=== PATIENT | female | born 1935 | race Caucasian/White ===

== ENCOUNTER 2020-07-14 12:12 | Outpatient (CLI) | payer MEDICARE | END 2020-07-14 23:59 | disposition home or self-care (01) | LOC: CARD DIAG 12:12 | PROVIDERS: ATTEND Family Medicine | DX: I08.3 Combined rheumatic disorders of mitral, aortic and tricuspid valves (principal); I50.9 Heart failure, unspecified | CPT/HCPCS: 93306 ==

== ENCOUNTER 2020-08-03 16:34 | Emergency (ER) | payer MEDICARE ==
[~2020-08-03] VITALS: Ht 167.6 cm; Wt 52.3 kg
[2020-08-03 16:38] VITALS: BP 109/54
--- NOTE | 2020-08-03 17:05 | NUR ---
DAUGHTER SAM [phone] AND TEODORO [phone]
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
--- NOTE | 2020-08-03 19:31 | NUR ---
is with patient at this time.
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
[2020-08-03 19:54] LABS: BASOPHILS % (AUTO) 0.4 % (0-1); EOSINOPHILS # (AUTO) 0.1 X10'3 (0-0.9); EOSINOPHILS % (AUTO) 0.9 % (0-6); HEMATOCRIT 41.5 % (35.0-45.0); HEMOGLOBIN 14.4 g/dl (12.0-16.0); MEAN CORPUSCULAR HEMOGLOBIN 31.3 PG (27.0-31.0); MEAN CORPUSCULAR HGB CONC 34.6 g/dL (33.0-36.5); MEAN CORPUSCULAR VOLUME 90.3 FL (78-98); MEAN PLATELET VOLUME 7.8 FL (7.4-10.4); MONOCYTES # (AUTO) 0.7 X10'3 (0-0.9); MONOCYTES % (AUTO) 7.6 % (2-12); NEUTROPHILS % (AUTO) 68.1 % (42-75); PLATELET COUNT 237 X10'3 (140-440); WHITE BLOOD COUNT 8.9 X10'3 (4.5-11.0)
[2020-08-03 20:11] LABS: ETHANOL < 0.010 GM/DL (0.0-0.010)
--- NOTE | 2020-08-03 20:15 | NUR ---
Patient laying in bed looking at the nurse's station.
--- NOTE | 2020-08-03 20:23 | NUR ---
pt refused to go to ct . refused to sit in wheel chair . notified
--- NOTE | 2020-08-03 20:23 | NUR ---
pt to ct accompied with siter and application project leader Elva
[2020-08-03] MEDS ORDERED: LORazepam 2 mg/ml vial IM ONE (20:35)
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
[2020-08-03 21:07] LABS: ALANINE AMINOTRANSFERASE 24 U/L (12-78); ALBUMIN 3.8 G/DL (3.4-5.0); ALKALINE PHOSPHATASE 82 IU/L (46-116); ANION GAP 6 (8-16); ASPARTATE AMINO TRANSFERASE 26 U/L (10-37); BILIRUBIN,TOTAL 0.8 MG/DL (0.1-1.0); BLOOD UREA NITROGEN 13 MG/DL (7-18); BUN/CREATININE RATIO 14.6 (6.6-38.0); CALCIUM 9.3 MG/DL (8.5-10.1); CHLORIDE 102 MMOL/L (99-107); CREATININE 0.89 MG/DL (0.40-0.90); GLUCOSE 175 MG/DL (70-104); POTASSIUM 3.6 MMOL/L (3.5-5.1); SODIUM 138 MMOL/L (135-145); TOTAL CARBON DIOXIDE 30.4 MMOL/L (24-32); TOTAL PROTEIN 7.5 G/DL (6.4-8.2); eGFR 61 ML/MIN
--- NOTE | 2020-08-03 21:18 | NUR ---
The patient has been medicated, and is going to CT.
--- NOTE | 2020-08-03 21:33 | NUR ---
Patient back from CT, is wobbly, and trying to walk. She does not want to lie down.
[2020-08-03 22:07] LABS: URINE AMPHETAMINE SCREEN NEGATIVE (Neg); URINE BARBITUATE SCREEN NEGATIVE (Neg); URINE BENZODIAZEPINES SCREEN NEGATIVE (Neg); URINE CANNABINOID SCREEN NEGATIVE (Neg); URINE COCAINE SCREEN NEGATIVE (Neg); URINE METHADONE SCREEN NEGATIVE (Neg); URINE OPIATE SCREEN NEGATIVE (Neg); URINE PHENCYCLIDINE SCREEN NEGATIVE (Neg)
--- NOTE | 2020-08-03 22:28 | NUR ---
The patient is sleeping in supine position. RR even and unlabored. No s/s of distress.
--- NOTE | 2020-08-03 23:54 | NUR ---
The patient is sleeping on her left side. RR even and unlabored. No s/s of distress.
--- NOTE | 2020-08-04 04:07 | NUR ---
patient sleeping undisturbed.
--- NOTE | 2020-08-04 06:50 | NUR ---
Patient sleeping on left side. No distress observed. Continue to monitor.
[2020-08-04] MEDS ORDERED: [UNRECOGNIZED DRUG - CODE] PO (07:24)
--- NOTE | 2020-08-04 09:57 | NUR ---
RN got patient up to BR. Patient has unsteady gait. RN assisted patient with tech. Patient did not know where she was. Continue to monitor.
--- NOTE | 2020-08-04 09:57 | NUR ---
Patient eating breakfast. No distress noted at this time. Continue to monitor.
--- NOTE | 2020-08-04 11:11 | NUR ---
Patient sleeping in right side. No distress observed. Continue to monitor.
--- NOTE | 2020-08-04 12:17 | NUR ---
[facility], Yadiel, speaking to patient. [facility] is not upholding the 5150. Daughter Madelyn is aware and working on getting patient home. Continue to monitor.
--- NOTE | 2020-08-04 13:51 | NUR ---
Pt's brother called to speak with pt who is currently on the phone engaged with someone else. He will call back in about 30m.
--- NOTE | 2020-08-04 14:29 | NUR ---
Patient speaking to her brother on the phone who lives out of town. No distress observed. Continue to monitor.
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
== END 2020-08-04 15:50 | disposition home or self-care (01) ==
LOC: ER 16:35
DX: F79 Unspecified intellectual disabilities (principal); G30.9 Alzheimer's disease, unspecified; F20.9 Schizophrenia, unspecified; R41.82 Altered mental status, unspecified
CPT/HCPCS: 36415; 70450; 80053; 80305; 80320; 84443; 85025; 96372; 99285; J2060

== ENCOUNTER 2020-11-18 22:26 | Emergency (ER) | payer MEDICARE ==
[~2020-11-18] VITALS: Ht 167.6 cm; Wt 51.3 kg
[~2020-11-18 22:26] MED LIST: [UNRECOGNIZED DRUG - CODE] PO
[2020-11-18 23:21] LABS: BASOPHILS # (AUTO) 0.1 X10'3 (0-0.2); BASOPHILS % (AUTO) 0.8 % (0-1); EOSINOPHILS # (AUTO) 0.1 X10'3 (0-0.9); EOSINOPHILS % (AUTO) 1.6 % (0-6); HEMATOCRIT 43.3 % (35.0-45.0); HEMOGLOBIN 14.7 g/dl (12.0-16.0); LYMPHOCYTES % (AUTO) 24.9 % (21-51); MEAN CORPUSCULAR HEMOGLOBIN 30.5 PG (27.0-31.0); MEAN CORPUSCULAR HGB CONC 33.9 g/dL (33.0-36.5); MEAN PLATELET VOLUME 7.9 FL (7.4-10.4); MONOCYTES # (AUTO) 0.6 X10'3 (0-0.9); MONOCYTES % (AUTO) 7.9 % (2-12); NEUTROPHILS # (AUTO) 5.1 X10'3 (1.8-7.7); NEUTROPHILS % (AUTO) 64.8 % (42-75); PLATELET COUNT 249 X10'3 (140-440); RED BLOOD COUNT 4.81 X10'6 (4.20-5.60); RED CELL DISTRIBUTION WIDTH 13.9 % (11.5-14.5); WHITE BLOOD COUNT 7.9 X10'3 (4.5-11.0)
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
[2020-11-18 23:34] LABS: ALANINE AMINOTRANSFERASE 28 U/L (12-78); ALBUMIN 4.1 G/DL (3.4-5.0); ALBUMIN/GLOBULIN RATIO 1.1 (1.1-1.5); ALKALINE PHOSPHATASE 103 IU/L (46-116); ANION GAP 8 (8-16); ASPARTATE AMINO TRANSFERASE 23 U/L (10-37); BILIRUBIN,TOTAL 0.6 MG/DL (0.1-1.0); BLOOD UREA NITROGEN 15 MG/DL (7-18); BUN/CREATININE RATIO 23.4 (6.6-38.0); CALCIUM 9.6 MG/DL (8.5-10.1); CHLORIDE 104 MMOL/L (99-107); CREATININE 0.64 MG/DL (0.40-0.90); GLUCOSE 107 MG/DL (70-104); POTASSIUM 3.3 MMOL/L (3.5-5.1); SODIUM 141 MMOL/L (135-145); TOTAL CARBON DIOXIDE 29.3 MMOL/L (24-32); TOTAL PROTEIN 7.7 G/DL (6.4-8.2); eGFR 89 ML/MIN
[2020-11-18 23:39] LABS: ACETAMINOPHEN < 2.0 UG/ML (10-30); ETHANOL < 0.010 GM/DL (0.0-0.010)
[2020-11-18 23:44] LABS: CLARITY,URINE CLEAR (Clear); COLOR,URINE YELLOW (Yellow); GLUCOSE, URINE NEGATIVE (Neg); KETONES,URINE 15 mg/dl (Neg); LEUKOCYTE ESTERASE ,URINE NEGATIVE (Neg); NITRITES, URINE NEGATIVE (Neg); OCCULT BLOOD,URINE TRACE-INTACT (Neg); PH,URINE 5.5 (4.8-8.0); PROTEIN,URINE NEGATIVE (Neg); UROBILINOGEN,URINE 0.2 E.U/dL (0.2-1.0)
[2020-11-18 23:48] LABS: UA COLLECTION TYPE STRAIGHT CATH
[2020-11-18 23:55] LABS: URINE AMPHETAMINE SCREEN NEGATIVE (Neg); URINE BARBITUATE SCREEN NEGATIVE (Neg); URINE BENZODIAZEPINES SCREEN NEGATIVE (Neg); URINE CANNABINOID SCREEN NEGATIVE (Neg); URINE COCAINE SCREEN NEGATIVE (Neg); URINE METHADONE SCREEN NEGATIVE (Neg); URINE OPIATE SCREEN NEGATIVE (Neg); URINE PHENCYCLIDINE SCREEN NEGATIVE (Neg)
[2020-11-19 00:11] LABS: BACTERIA,URINE FEW /HPF (Neg); RBC,URINE 0-2 /HPF (0-2); SQUAMOUS EPITHELIAL CELL,UR FEW /LPF (FEW); WBC,URINE 0-4 /HPF (0-4)
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
[2020-11-19] MEDS ORDERED: RISP2TAB85 PO (00:28)
[2020-11-19] MEDS ORDERED: QUET100T33 PO (00:28)
--- NOTE | 2020-11-19 00:30 | NUR ---
MED REC COMPLETED BY USING EXTERNAL DATA. PERSCRIPTIONS FROM DR. MENENDEZ FOR SEROQUEL 100 MD TID AND RESPERIDOL 2 MG BID.
--- NOTE | 2020-11-19 00:32 | NUR ---
PT ATE JELLO, DRANK SOME APPLE JUICE AND ATE A PGK OF GRAHM CRACKERS. SHE WAS SITTING AND STARING AT THE FOOD FOR APROX 10 MIN AND I WENT TO HER AND OPENED THE ITEMS. PT THEN STARED AT THE FOOD A WHILE LONGER THEN BEGAN TO SLOWLY EAT THE ITEMS. NOW SLEEPING AND SNORING INTERMITTENTLY, LYING ON HER RIGHT SIDE WITH BLANKETS COVERING TO HER SHOULDERS.
--- NOTE | 2020-11-19 01:24 | NUR ---
PT REMAINS ASLEEP, SNORING INTERMITTENTLY. LYING ON HER RIGHT SIDE WITH BLANKETS COVERING TO HER SHOULDERS. SITTER AND RN WITHIN VIEW OF PT AAT.
--- NOTE | 2020-11-19 03:21 | NUR ---
PT REMAINS ASLEEP. LYING ON HER RIGHT SIDE WITH BLANKETS COVERING TO HER SHOUDERS.
--- NOTE | 2020-11-19 04:30 | NUR ---
Pt woke up and raised up on one elbow and ate some crackers and drank some water. Soon after she lay back down and appears to be back to sleep.
--- NOTE | 2020-11-19 05:56 | NUR ---
packet faxed to [facility]
--- NOTE | 2020-11-19 06:01 | NUR ---
belongings inventoried and placed in room 27 locker
--- NOTE | 2020-11-19 07:00 | NUR ---
Pt sleeping on right side. Pt was up to bathroom at 0645 then returned to her bed to sleep. Pt required some direction. Respirations even and unlabored.
--- NOTE | 2020-11-19 07:53 | NUR ---
Called pt's francesca Walls, unable to leave message as mailbox was full. Left message for second daugher.
[2020-11-19] MEDS ORDERED: risperiDONE 2mg tablet PO SCH (08:00)
--- NOTE | 2020-11-19 08:18 | NUR ---
Spoke with Dr. Meño morgan's current medications. Pt is on Risperidone 2mg BID and Seroquel 100mg TID. Pt has a history and has current demenia and Alzheimer's diagnosis and behaviors. Okay per Dr. Wilder to d/c the Risperidone and continue Seroquel.
[2020-11-19] MEDS: quetiapine 100mg tablet PO SCH ×2 (08:29→13:00)
--- NOTE | 2020-11-19 08:50 | NUR ---
Patient is sitting on side of bed finishing her breakfast. Pt presents as calm and cooperative. Pt continues to be confused as to where she is and why she is here. Pt knows her name and . Pt states "I sometimes get like this." "Not sure why I am here, maybe a cold or something." Pt has some latency in her speech and is easily distracted. Pt states she lives alone. When pt was told she will be evaluated by [facility], she states "okay." "But when will I get to go home. Pt ambulates with a steady gait, but needs to be reminded where here bed is. Pt was cooperative with her one medication, but had to be redirected to take it as she is easily distracted. Pt denies S/I and does not appear internally preoccupied. Pt makes no delusional statements.
--- NOTE | 2020-11-19 09:11 | NUR ---
SAM PUENTE (PT'S DAUGHTER) WORK #: [phone] CELL #: [phone]
--- NOTE | 2020-11-19 09:37 | NUR ---
Pt woke up hearing another yelling. Pt stated "Kavita your daughter wants to see you." "I just saw her walk by the bed." Pt is reassured everything is okay and falls back to sleep. No distress noted.
--- NOTE | 2020-11-19 11:09 | NUR ---
PT'S GRANDELIO BUCKNER CALLED TO CHECK ON HER. DUDLEY SAID THAT SHE LIVES WITH THE PT. GRANDDAUGHTER'S PHONE NUMBER IS [phone].
--- NOTE | 2020-11-19 11:30 | NUR ---
Pt sleeping on left side, respirations even and unlabored. Pt appears sedated r/t to her 0800 Seroquel. No distress noted.
--- NOTE | 2020-11-19 13:21 | NUR ---
Pt continues to sleep, no distress noted. Pt rouses to name. Respirations even and unlabored.
--- NOTE | 2020-11-19 14:10 | NUR ---
Received notification from [facility]iel [facility]. Jonathon was notified 5150 was rescinded. Will request consultation for discharge.
--- NOTE | 2020-11-19 16:21 | NUR ---
Pt sitting up at side of bed eating her lunch. Pt was to sedated at lunchtime. Pt waiting to be discharged.
[2020-11-19 17:14] VITALS: BP 96/48
--- NOTE | 2020-11-19 17:18 | NUR ---
DISCHARGE NOTE: Pt's 5150 was rescinded by [facility]. Pt is being discharged to granddaughter. Reviewed discharge instructions with GD. Pt left with personal belongings. Pt is a little fatigued, but states glad she is going home. Pt was taken to care with PCT Margarita and security.
== END 2020-11-19 17:35 | disposition home or self-care (01) ==
LOC: ER 22:28
DX: F79 Unspecified intellectual disabilities (principal); R45.851 Suicidal ideations
CPT/HCPCS: 36415; 80053; 80305; 80320; 80329; 81001; 85025; 99285

== ENCOUNTER 2021-04-07 09:48 | Emergency (ER) | payer MEDICARE ==
[~2021-04-07] VITALS: Ht 162.6 cm; Wt 50.0 kg
[~2021-04-07 09:48] MED LIST changes: +QUET100T33 PO; +RISP2TAB85 PO; -[UNRECOGNIZED DRUG - CODE] PO
[2021-04-07] MEDS ORDERED: normal saline 1000ml 1,000 ML IV ONE (10:30)
--- NOTE | 2021-04-07 10:48 | NUR ---
[facility] [phone].
[2021-04-07 10:54] LABS: BASOPHILS # (AUTO) 0.1 X10'3 (0-0.2); EOSINOPHILS # (AUTO) 0.2 X10'3 (0-0.9); HEMATOCRIT 40.3 % (35.0-45.0); HEMOGLOBIN 13.8 g/dl (12.0-16.0); LYMPHOCYTES # (AUTO) 0.9 X10'3 (1.1-4.8); LYMPHOCYTES % (AUTO) 11.7 % (21-51); MEAN CORPUSCULAR HEMOGLOBIN 30.7 PG (27.0-31.0); MEAN CORPUSCULAR HGB CONC 34.3 g/dL (33.0-36.5); MEAN CORPUSCULAR VOLUME 89.5 FL (78-98); MEAN PLATELET VOLUME 7.8 FL (7.4-10.4); MONOCYTES # (AUTO) 0.5 X10'3 (0-0.9); MONOCYTES % (AUTO) 6.5 % (2-12); NEUTROPHILS # (AUTO) 5.8 X10'3 (1.8-7.7); NEUTROPHILS % (AUTO) 77.8 % (42-75); PLATELET COUNT 218 X10'3 (140-440); RED BLOOD COUNT 4.51 X10'6 (4.20-5.60); RED CELL DISTRIBUTION WIDTH 13.6 % (11.5-14.5); WHITE BLOOD COUNT 7.4 X10'3 (4.5-11.0)
[2021-04-07 11:18] LABS: ALANINE AMINOTRANSFERASE 16 U/L (12-78); ALBUMIN 3.6 G/DL (3.4-5.0); ALBUMIN/GLOBULIN RATIO 1.1 (1.1-1.5); ALKALINE PHOSPHATASE 110 IU/L (46-116); ANION GAP 9 (8-16); ASPARTATE AMINO TRANSFERASE 21 U/L (10-37); BILIRUBIN,TOTAL 0.6 MG/DL (0.1-1.0); BLOOD UREA NITROGEN 13 MG/DL (7-18); BUN/CREATININE RATIO 19.7 (6.6-38.0); CALCIUM 9.1 MG/DL (8.5-10.1); CHLORIDE 103 MMOL/L (99-107); CREATININE 0.66 MG/DL (0.40-0.90); GLUCOSE 161 MG/DL (70-104); POTASSIUM 3.5 MMOL/L (3.5-5.1); SODIUM 140 MMOL/L (135-145); eGFR 86 ML/MIN
[2021-04-07] MEDS ORDERED: CEPH250T PO (12:21)
--- NOTE | 2021-04-07 12:44 | NUR ---
Call to daughter to crab picker patient, no answer.
--- NOTE | 2021-04-07 12:56 | NUR ---
Call to tamara Niño at this time, no answer.
--- NOTE | 2021-04-07 12:58 | NUR ---
Spoke with daughter Renay, states she was on her way to pick patient up as soon as possible.
[2021-04-07 13:32] VITALS: BP 112/55
== END 2021-04-07 14:13 | disposition home or self-care (01) ==
LOC: ER 09:49
DX: L03.116 Cellulitis of left lower limb (principal); F03.90 Unspecified dementia, unspecified severity, without behavioral disturbance, psychotic disturbance, mood disturbance, and anxiety; G20 Parkinson's disease; Z79.2 Long term (current) use of antibiotics; Z79.899 Other long term (current) drug therapy
CPT/HCPCS: 36415; 71045; 80053; 83605; 83735; 83880; 84145; 84484; 85025; 85610; 87040; 93005; 96360; 99285; J7030